=== PATIENT | male | born 1955 ===

== ENCOUNTER 2016-09-11 07:15 | Day surgery (SDC) | payer BC, SELFPAY ==
[~2016-09-11] VITALS: Ht 172.7 cm; Wt 72.6 kg
[2016-09-11] MEDS ORDERED: LR 1000ml 1,000 ML IVLG SCH ×2 (07:32→10:25)
[2016-09-11 07:46] VITALS: BP 116/75
[2016-09-11] MEDS ORDERED: NKM (07:50)
--- NOTE | 2016-09-11 09:49 | Short Stay Surgery H&P ---
History of Present Illness History of Present Illness Chief Complaint Abdominal pains, LLQ pains, anemia of low iron. HPI Yenni Cash is a 61 year old male who was admitted on for Gi Bleeding/ anemia Patient History Allergies: Coded Allergies: No Known Allergies (Unverified , 09/11/16) PAST MEDICAL HISTORY: Past Surgeries: Social History: Medication History Scheduled No Known Medications* (NKM - No Known Medications*), 0 ., (Reported) Review of Systems Cardiovascular: Reports: no symptoms Skeletal: Reports: no symptoms Gastrointestinal: Reports: gastro esophageal reflux disease, other Genitourinary: Reports: no symptoms Neurologic: Reports: no symptoms Endocrine: Reports: no symptoms Hematologic: Reports: no symptoms Physical Exam Vital Signs Last Vital Signs Date Time Temp Pulse Resp B/P Pulse Ox O2 Delivery O2 Flow Rate FiO2 09/11/16 07:46 98.5 62 18 116/75 97 Room Air Skin: normal HENT: normal Heart: normal Lungs: normal Abdomen: abnormal Extremities: normal Genitourinary: normal Plan Plan of Care Upper and lowe GI endoscopy and biopsy. Preop Interventions None. Summary of Findings See the reports. Final Diagnosis: Attestation Are the patient's medical conditions optimized for surgery? Attestation Response: yes KATHLEEN RITCHIE Sep 11, 2016 09:49
--- NOTE | 2016-09-11 09:50 | Pre-Procedure Note/Attestation ---
Pre-Procedure Note/Attestation Complete Prior to Procedure Planned Procedure: left Procedure Narrative: Endoscopic exam of the upper and the lower GI tract Indications for Procedure Pre-Operative Diagnosis: R/O colitis/peptic ulcer/tumor of the colon/polyp Attestation I attest that I discussed the nature of the procedure; its benefits; risks and complications; and alternatives (and the risks and benefits of such alternatives ), prior to the procedure, with the patient (or the patient's legal eligibility services representative). I attest that, if there was a reasonable possibility of needing a blood transfusion, the patient (or the patient's legal eligibility services representative) was given the [facility] standardized written summary, pursuant to the Markie Camano Blood Safety Act ([place] Health and Safety Code # 1645, as amended). I attest that I re-evaluated the patient just prior to the surgery and that there has been no change in the patient's H&P, except as documented below: CHAU,SAID Sep 11, 2016 09:50
--- NOTE | 2016-09-11 10:25 | Anethesia Preoperative Eval ---
Anesthesia Pre-op PMH/ROS General Date of Evaluation: Sep 11, 2016 Time of Evaluation: 09:51 Anesthesiologist: rod ASA Score: ASA 1 Mallampati Score Class I : Soft palate, uvula, fauces, pillars visible Class II: Soft palate, uvula, fauces visible Class III: Soft palate, base of uvula visible Class IV: Only hard plate visible Mallampati Classification: Class II Surgeon: ramon Diagnosis: anemia Surgical Procedure: egd/colonocopy Anesthesia History: none Family History: no anesthesia problems Allergies: Coded Allergies: No Known Allergies (Unverified , 09/11/16) Medications: see eMAR Past Medical History Hematology/Immune: Reports: anemia PSxH Narrative: imguinal hernia sx Anesthesia Pre-op Phys. Exam Physician Exam Last Vital Signs Date Time Temp Pulse Resp B/P Pulse Ox O2 Delivery O2 Flow Rate FiO2 09/11/16 07:46 98.5 62 18 116/75 97 Room Air Constitutional: NAD Neurologic: CN 2-12 intact Cardiovascular: RRR Respiratory: CTA Gastrointestinal: S/NT/ND Airway Exam Mallampati Score: Class II MO: full Neck: supple TMD: 2fb ROM: full Teeth: intact Anesthesia Pre-op A/P Risk Assessment & Plan Assessment: asa1 Plan: mac Status Change Before Surgery: No Pre-Antibiotics Drug: SUZAN Leigh Sep 11, 2016 10:25
[2016-09-11] MEDS ORDERED: Midazolam 2mg/2ml Inj IVP PRN (10:30)
[2016-09-11] MEDS ORDERED: Atropine Inj 1mg/10ml Syr IV PRN (10:30)
[2016-09-11] MEDS ORDERED: DiphenhydrAMINE 50mg/ml Inj IVP PRN (10:30)
[2016-09-11] MEDS ORDERED: Hydromorphone 0.5mg/0.5ml inj IVP PRN (10:30)
--- NOTE | 2016-09-11 10:33 | Endoscopy Procedure Note ---
Endoscopy Procedure Note Indication for Procedure: Abdominal pain and anemia Procedures Performed: EGD - Completely normal upper GI endoscopy biopsy done per random from gastric body., colonoscopy - Internal hemorrhoids. Significant polypoid inflammatory lesion in recto-sigmoid area (from 20-25 Cm, biopsied. Severe diverticulosis of left colon. Poor colon preparation. Examination was done upto the base cecum, ileum could not be entered., ERCP - Not done. Specimen: yes Pt Tolerated Procedure Well: Yes Estimated Blood Loss: none Anesthesiologist: Dr. Waller Anesthesia: moderate sedation Medication Given: see anesthesia record Implant(s) used?: No 50 yrs or older w/o bx or poly: Yes 10yrs. F/U not recommended: Yes If not recommended, why?: Above average risk 10 yrs. F/U needed: Yes 18 years or older w/prev. colo: Yes <3yrs. since last colonoscopy: No Med reason:<3 yrs.: KATHLEEN RITCHIE Sep 11, 2016 10:33
--- NOTE | 2016-09-11 10:34 | Discharge Instructions ---
Discharge Instructions Discharge Instructions Follow up with: See the physician after one week in office. For Congestive Heart Failure Reminder Report to your physician any weight gain of 5 pounds or more in one week. KATHLEEN RITCHIE Sep 11, 2016 10:34
[2016-09-11 10:36] VITALS: BP 110/79
[2016-09-11 10:40] VITALS: BP 114/79
[2016-09-11 10:45] VITALS: BP 120/78
--- NOTE | 2016-09-11 10:53 | Immediate Post-Op Evaluation ---
Immediate Post-Op Evalulation Immediate Post-Op Evalulation Procedure: egd/colonoscopy Date of Evaluation: Sep 11, 2016 Time of Evaluation: 10:52 IV Fluids: 650ml lr Blood Products: none Estimated Blood Loss: negligible Blood Pressure Systolic: 114 Blood Pressure Diastolic: 59 Pulse Rate: 57 Respiratory Rate: 18 O2 Sat by Pulse Oximetry: 97 Temperature (Fahrenheit): 97.7 Pain Score (1-10): 0 Nausea: No Complications none Patient Status: awake, reacts, patent Hydration Status: adequate Drug: SUZAN Leigh Sep 11, 2016 10:53
--- NOTE | 2016-09-11 10:54 | 48 Hour Post Anesthesia Eval ---
Post Anesthesia Evaluation Procedure: egd/colonoscopy Date of Evaluation: Sep 11, 2016 Time of Evaluation: 10:54 Blood Pressure Systolic: 116 0: 72 Pulse Rate: 66 Respiratory Rate: 18 Temperature (Fahrenheit): 97.7 O2 Sat by Pulse Oximetry: 97 Airway: patent Nausea: No Vomiting: No Pain Intensity: 0 Hydration Status: adequate Cardiopulmonary Status: stable Mental Status/LOC: patient returned to baseline Post-Anesthesia Complications: none SUZAN GARCIA Sep 11, 2016 10:54
[2016-09-11 11:05] VITALS: BP_SYST 109; BP_SYST 118; BP_DIAS 76; BP_DIAS 82
--- NOTE | 2016-09-11 15:30 | Operative Note - Dictated ---
DATE OF OPERATION: 09/11/2016 PROCEDURE PERFORMED: Esophagogastroduodenoscopy with biopsy. PREOPERATIVE DIAGNOSIS: Anemia, iron-deficiency, rule out upper gastrointestinal bleeding. POSTOPERATIVE DIAGNOSIS: Completely normal upper gastrointestinal endoscopy. Biopsy was taken per random from gastric body. MEDICATIONS USED: Per Dr. Soto, anesthesiologist. INSTRUMENT: GIF Olympus upper gastrointestinal video endoscope. DESCRIPTION OF PROCEDURE: The patient after arriving endoscopy unit, was told about risks and benefits of the procedure, which he accepted and signed informed consent. He was then put on the left lateral decubitus position. After adequate IV sedation, the scope was gently passed through the cricopharyngeal area, was lodged into the upper esophagus, and gradually advanced towards gastroesophageal junction. The entire length of the esophagus looked normal and there was no evidence of any inflammatory process, varices, stricture, ulcers, etc. GE junction also looked completely normal without any evidence of Valdovinos's or hiatal hernia. At this time, the scope was advanced into the stomach. Gastric cavity was distended with insufflation of air with revealing normal gastric mucosa in the fundus and the body and the antrum and there was no any GI bleeding source such as hemangioma, polyps, tumors, gastritis, ulcers, etc. One random biopsy from gastric body was obtained and the scope was passed through the pylorus. First and second portion of duodenum were also found to be completely normal. At this time, the scope was pulled back into the stomach. A retroflexion maneuver was applied. The area of the gastroesophageal junction was examined in a closer fashion, which revealed normal findings. Finally, the scope was pulled out and the procedure was terminated. The patient tolerated the procedure well. Said Jose Luis Mosher DR: MUSHTAQ JOB#: [id number] CC:
--- NOTE | 2016-09-11 15:45 | Operative Note - Dictated ---
DATE OF OPERATION: 09/11/2016 SURGEON: Nitza Mosher M.D. PROCEDURE: Total colonoscopy with multiple biopsies. PREOPERATIVE DIAGNOSES: 1. Abdominal pain. 2. Anemia. 3. History of recent diverticulitis. POSTOPERATIVE DIAGNOSES: 1. Minimal internal hemorrhoids. 2. Severe inflammatory polypoid lesions from the 20 cm to 25 cm from the anus consistent with localized colitis of unknown etiology. Multiple biopsy was obtained. The lesions were friable, rule out idiopathic colitis/infectious colitis, etc. 3. Significant numbers of diverticular lesions of the left colon. 4. Poor colonic preparation. 5. A 3 mm hyperplastic polypoid lesion found in the left colon, which was removed with cold biopsy forceps. MEDICATION USED: Per Dr. Soto, anesthesiologist. INSTRUMENT: GIF Olympus videocolonoscope. DESCRIPTION OF PROCEDURE: The patient after arriving in the endoscopy unit was told about risks and benefits of the procedure, which he accepted and signed the informed consent. The patient has been recently having abdominal pain and had a CT scan with question of inflammatory process in the rectosigmoid area. The patient has had history of diverticulitis, which had been recently treated adequately. At this time, the scope was advanced into the anal area, which revealed evidence of minimal internal hemorrhoids, which were not friable. The rectum itself was normal. However, upon reaching at the level of 20 cm, it was suddenly seen an area of significant inflammatory process with edema of the colonic mucosa in polypoid shape. However, there was no any evidence of malignancy endoscopically at this point. The lesions were somewhat friable. However, as I mentioned, the localized colitis had only 5 cm in length and somewhat semi circular in shape around the colon wall. Multiple biopsies from these lesions were obtained. As I mentioned, they looked benign however. At this point, the scope was gradually advanced into rectosigmoid area in the ascending colon, which revealed significant numbers of diverticular lesions. However, there was no any evidence of acute diverticulitis or inflammatory process in the diverticular opening areas. Finally, the scope reached toward the proximal descending colon, which suddenly a 2 to 3 mm diminutive/hyperplastic polypoid lesion was found which was grabbed with cold biopsy forceps and was removed and sent to the pathology lab. At this time, the scope was gradually passed toward the transverse colon, hepatic flexure, and right colon all the way to the base of the cecum. All these areas remained to be normal. However, there were was liquidy stool along the colon signifying the lack of adequate colonic preparation and as such, the other possible hyperplastic polypoid lesions could not be ruled out, though there was no any gross polyp found at this time. Upon reaching to the base of the cecum, significant attempt was made to enter into the terminal ileum, which was not successful as the colon was not clean in this area either. Finally, within 8 minutes, the scope was gradually pulled out and re-evaluation of the colon did not add any other pathology rather than what was mentioned earlier. The patient tolerated the procedure well and left the endoscopy room in a good condition. Said Jose Luis Mosher DR: MUSHTAQ JOB#: [id number] CC:
== END 2016-09-11 11:35 | disposition home or self-care (01) ==
LOC: GAS 07:15
DX: D50.9 Iron deficiency anemia, unspecified (principal); K29.50 Unspecified chronic gastritis without bleeding; K21.9 Gastro-esophageal reflux disease without esophagitis; D12.3 Benign neoplasm of transverse colon; D12.4 Benign neoplasm of descending colon; K64.8 Other hemorrhoids; K57.30 Diverticulosis of large intestine without perforation or abscess without bleeding; K62.89 Other specified diseases of anus and rectum; D72.822 Plasmacytosis
CPT/HCPCS: 82270; 94003; 94150

== ENCOUNTER 2017-01-22 07:15 | Day surgery (SDC) | payer BC ==
[~2017-01-22] VITALS: Ht 165.1 cm; Wt 72.6 kg
--- NOTE | 2017-01-22 06:48 | Anethesia Preoperative Eval ---
Anesthesia Pre-op PMH/ROS General Date of Evaluation: Jan 22, 2017 Time of Evaluation: 06:46 Anesthesiologist: rod ASA Score: ASA 2 Mallampati Score Class I : Soft palate, uvula, fauces, pillars visible Class II: Soft palate, uvula, fauces visible Class III: Soft palate, base of uvula visible Class IV: Only hard plate visible Mallampati Classification: Class II Surgeon: ramon Diagnosis: colitis Surgical Procedure: sigmoidoscopy Anesthesia History: none Social History: smoking - former smoker Family History: no anesthesia problems Allergies: Coded Allergies: No Known Allergies (Unverified , 09/11/16) Medications: see eMAR Anesthesia Pre-op Phys. Exam Physician Exam Last Vital Signs Date Time Temp Pulse Resp B/P (MAP) Pulse Ox O2 Delivery O2 Flow Rate FiO2 01/22/17 07:37 97.7 45 18 145/82 97 Room Air Constitutional: NAD Neurologic: CN 2-12 intact Cardiovascular: RRR Respiratory: CTA Gastrointestinal: S/NT/ND Airway Exam Mallampati Score: Class II MO: full Neck: supple TMD: 2fb ROM: full Teeth: intact Anesthesia Pre-op A/P Risk Assessment & Plan Assessment: asa2 Plan: mac Status Change Before Surgery: No Pre-Antibiotics Drug: SUZAN Leigh Jan 22, 2017 06:48
[~2017-01-22 07:15] MED LIST: Atropine Inj 1mg/10ml Syr IV PRN; DiphenhydrAMINE 50mg/ml Inj IVP PRN; LR 1000ml 1,000 ML IVLG SCH; Midazolam 2mg/2ml Inj IVP PRN; NKM; fentaNYL 100 mcg/2 mL IV PRN
[2017-01-22 07:37] VITALS: BP 145/82
--- NOTE | 2017-01-22 07:56 | Short Stay Surgery H&P ---
History of Present Illness History of Present Illness Chief Complaint History of left colitis HPI Yenni Cash is a 61 year old male who was admitted on for Colitis Patient History Allergies: Coded Allergies: No Known Allergies (Unverified , 09/11/16) PAST MEDICAL HISTORY: Past Surgeries: Social History: Medication History Scheduled No Known Medications* (NKM - No Known Medications*), 0 ., (Reported) Review of Systems Cardiovascular: Reports: no symptoms Respiratory: Reports: no symptoms Skeletal: Reports: no symptoms Gastrointestinal: Reports: no symptoms Genitourinary: Reports: no symptoms Neurologic: Reports: no symptoms Endocrine: Reports: no symptoms Hematologic: Reports: no symptoms Physical Exam Vital Signs Last Vital Signs Date Time Temp Pulse Resp B/P (MAP) Pulse Ox O2 Delivery O2 Flow Rate FiO2 01/22/17 07:37 97.7 45 18 145/82 97 Room Air Skin: normal HENT: normal Heart: normal Lungs: normal Abdomen: normal Extremities: normal Genitourinary: normal Plan Plan of Care Sigmoidoscopy Preop Interventions None Summary of Findings See the reports Final Diagnosis: Attestation Are the patient's medical conditions optimized for surgery? Attestation Response: yes KATHLEEN RITCHIE Jan 22, 2017 07:56
--- NOTE | 2017-01-22 07:57 | Pre-Procedure Note/Attestation ---
Pre-Procedure Note/Attestation Complete Prior to Procedure Planned Procedure: left Procedure Narrative: examination of the rectosigmoid area via colonoscope Indications for Procedure Pre-Operative Diagnosis: R/O colitis/proctitis. Attestation I attest that I discussed the nature of the procedure; its benefits; risks and complications; and alternatives (and the risks and benefits of such alternatives ), prior to the procedure, with the patient (or the patient's legal independent sales representative). I attest that, if there was a reasonable possibility of needing a blood transfusion, the patient (or the patient's legal independent sales representative) was given the [facility] standardized written summary, pursuant to the Markie [place] Blood Safety Act ([place] Health and Safety Code # 1645, as amended). I attest that I re-evaluated the patient just prior to the surgery and that there has been no change in the patient's H&P, except as documented below: CHAU,SAID Jan 22, 2017 07:57
[2017-01-22] MEDS ORDERED: LR 1000ml ONE (08:30)
[2017-01-22] MEDS ORDERED: Lidocaine 1% MPF 10mg/ml 5ml ONE (08:30)
[2017-01-22] MEDS ORDERED: Propofol 200mg/20ml IV ONE (08:30)
--- NOTE | 2017-01-22 08:37 | Endoscopy Procedure Note ---
Endoscopy Procedure Note Indication for Procedure: History of proctosigmoiditis Procedures Performed: flexible sigmoidoscopy - Normal sigmoidoscopy. Poor colon preparation. Specimen: none Pt Tolerated Procedure Well: Yes Estimated Blood Loss: none Anesthesiologist: Dr. Waller Anesthesia: moderate sedation Medication Given: see anesthesia record Implant(s) used?: No 50 yrs or older w/o bx or poly: Yes 10yrs. F/U not recommended: Yes If not recommended, why?: Med reason:<3 yrs.: System Reason:<3 yrs.: KATHLEEN RITCHIE Jan 22, 2017 08:37
--- NOTE | 2017-01-22 08:38 | Discharge Instructions ---
Discharge Instructions Discharge Instructions Follow up with: No need for office follow up post procedure For Congestive Heart Failure Reminder Report to your physician any weight gain of 5 pounds or more in one week. KATHLEEN RITCHIE Jan 22, 2017 08:38
[2017-01-22 08:44] VITALS: BP 106/67
[2017-01-22 08:50] VITALS: BP 110/67
[2017-01-22 08:55] VITALS: BP 121/71
--- NOTE | 2017-01-22 09:00 | Immediate Post-Op Evaluation ---
Immediate Post-Op Evalulation Immediate Post-Op Evalulation Procedure: sigmoidoscopy Date of Evaluation: Jan 22, 2017 Time of Evaluation: 08:57 IV Fluids: 250ml lr Blood Products: none Estimated Blood Loss: negligible Blood Pressure Systolic: 110 Blood Pressure Diastolic: 67 Pulse Rate: 48 Respiratory Rate: 18 O2 Sat by Pulse Oximetry: 100 Temperature (Fahrenheit): 97.3 Pain Score (1-10): 0 Nausea: No Vomiting: No Complications none Patient Status: awake, reacts, patent Hydration Status: adequate Drug: SUZAN Leigh Jan 22, 2017 09:00
--- NOTE | 2017-01-22 09:03 | 48 Hour Post Anesthesia Eval ---
Post Anesthesia Evaluation Procedure: sigmoidoscopy Date of Evaluation: Jan 22, 2017 Time of Evaluation: 09:03 Blood Pressure Systolic: 111 0: 66 Pulse Rate: 50 Respiratory Rate: 18 Temperature (Fahrenheit): 97.4 O2 Sat by Pulse Oximetry: 100 Airway: patent Nausea: No Vomiting: No Pain Intensity: 0 Hydration Status: adequate Cardiopulmonary Status: stable Mental Status/LOC: patient returned to baseline Post-Anesthesia Complications: none Follow-up care needed: N/A SUZAN GARCIA Jan 22, 2017 09:03
[2017-01-22 09:05] VITALS: BP 123/74
[2017-01-22 09:15] VITALS: BP 126/67
--- NOTE | 2017-01-22 19:00 | Operative Note - Dictated ---
DATE OF OPERATION: 01/22/2017 PROCEDURE: Proctosigmoidoscopy. PREOPERATIVE DIAGNOSIS: History of rectosigmoiditis, proctosigmoiditis. POSTOPERATIVE DIAGNOSIS: Normal sigmoidoscopy up to the level of 30 cm from anus as examined with poor colonic preparation. SURGEON: Nitza Mosher M.D. MEDICATION USED: Per Dr. Waller, anesthesiologist. INSTRUMENT: GIF Olympus videocolonoscope. DESCRIPTION OF PROCEDURE: The patient, after arriving in the endoscopy unit, was told about risks and benefits of the procedure, which he accepted and signed the informed consent. The patient has had history of proctosigmoiditis recently, which was treated adequately of possibly nonspecific origin. Currently, he was asymptomatic and this procedure was being done for follow up of the findings of sigmoidoscopy that it was found in the past. After putting the patient on the left lateral decubitus position, the scope was gently passed through the anal area and gradually advanced toward the rectum and rectosigmoid junction. The colon prep unfortunately was not adequate and there were pieces of formed stool along the colon, which had to be washed. However, there was no underlying mucosal abnormality up to the 30 cm from the anus that was examined. No evidence of ulcers, inflammatory process, tumors, or stricture was found. Finally, the scope was pulled out and procedure was terminated. The patient tolerated the procedure well and left the endoscopy room in a good condition. Nitza Mosher M.D. DR: SANDRA JOB#: [id number] CC: RODGER
== END 2017-01-22 09:30 | disposition home or self-care (01) ==
LOC: GAS 07:15
DX: K52.9 Noninfective gastroenteritis and colitis, unspecified (principal); Z87.891 Personal history of nicotine dependence
CPT/HCPCS: 45300; J2704; J7120; 94003; 94150